=== PATIENT | female | born 1985 | race African-American/Black ===

== ENCOUNTER 2016-09-19 14:42 | Emergency (ER) | payer OTHER ==
[~2016-09-19 14:42] MED LIST: ALBUTEROL17 GM INH; FLOVENT HFA12 GM INH
== END 2016-09-19 17:00 | disposition home or self-care (01) ==
LOC: CFTX 14:42 → CED 14:42 → CFTX 17:00
DX: S05.01XA Injury of conjunctiva and corneal abrasion without foreign body, right eye, initial encounter (principal); J45.909 Unspecified asthma, uncomplicated; Z91.018 Allergy to other foods; Z23 Encounter for immunization; W22.8XXA Striking against or struck by other objects, initial encounter; Y92.009 Unspecified place in unspecified non-institutional (private) residence as the place of occurrence of the external cause
CPT/HCPCS: 90471; 90715; 99283